=== PATIENT | male | born 1960 | race Caucasian/White ===

== ENCOUNTER 2022-02-07 14:37 | Inpatient (IN) | payer BC, OTHER ==
[~2022-02-07] VITALS: Ht 172.7 cm; Wt 78.2 kg
[2022-02-07] MEDS ORDERED: NITROGLYCERIN 0.4 MG SL TAB SL ONE (15:15)
[2022-02-07] MEDS ORDERED: HEPARIN DRIP/D5W 100UNITS/ML 250 ML IV SCH (15:15)
[2022-02-07 15:19] LABS: Basophils # (auto) 0.1 10 ^3/uL (0-0.2); Basophils % (auto) 0.6 % (0.0-2.0); Eosinophils # (auto) 0 10 ^3/uL (0-0.8); Monocytes # (auto) 0.5 10 ^3/uL (0-1.3); Neutrophils # (auto) 12.7 10 ^3/uL (1.6-8.6); Neutrophils % (auto) 90.3 % (37.0-80.0); Red Cell Distribution Width 13.9 % (11.8-14.3)
[2022-02-07 15:21] LABS: Eosinophils % (auto) 0.1 % (0.0-7.0); Hematocrit 47.2 % (41.0-53.0); Hemoglobin 15.6 g/dL (13.5-17.5); Lymphocytes # (auto) 0.7 10 ^3/uL (0.4-5.4); Lymphocytes % (auto) 5.1 % (10.0-50.0); Mean Corpuscular Hemoglobin 26.5 pg (28.0-32.0); Mean Corpuscular Volume 80.3 fL (80.0-100.0); Monocytes % (auto) 3.9 % (0.0-12.0); Nucleated Red Blood Cells % 0.1 %; Red Blood Cells 5.88 10^6/uL (4.5-5.90)
[2022-02-07] MEDS ORDERED: METOPROLOL TARTRATE 1MG/1ML-5ML VIAL IV ONE (15:30)
[2022-02-07] MEDS ORDERED: FAT EMULSION IV SCH (15:30)
[2022-02-07] MEDS ORDERED: CLOPIDOGREL BISULFATE 75 MG TAB PO ONE ×3 (15:30)
[2022-02-07] MEDS ORDERED: GIVE UN DILUTED IV SCH (15:30)
[2022-02-07 15:37] LABS: Albumin 3.5 g/dL (3.4-5.0); Calcium 8.8 mg/dL (8.5-10.1); Potassium 4.3 mmol/L (3.5-5.1)
[2022-02-07 15:41] LABS: INR 1.03 (0.9-1.15); Partial Thromboplastin Time 27.2 sec (24.6-33.4)
[2022-02-07 15:42] LABS: Bilirubin, Total 0.7 mg/dL (0.2-1.0); Total Protein 6.7 g/dL (6.4-8.2)
[2022-02-07] MEDS ORDERED: CLOPIDOGREL 300 MG TAB PO ONE (15:45)
[2022-02-07] MEDS ORDERED: HEPARIN SODIUM (PORCINE) 5000 UNITS/ML 1ML VIAL IV ONE (15:45)
[2022-02-07] MEDS ORDERED: NITROGLYCERIN 2% OINT 1GM PKG TD ONE (16:15)
[2022-02-07] MEDS ORDERED: ONDANSETRON HCL 4 MG/2 ML VIAL IV ONE (18:00)
[2022-02-07] MEDS ORDERED: MORPHINE SULFATE 4 MG/ML SYR/VIAL IV PRN (20:00)
[2022-02-07] MEDS ORDERED: ONDANSETRON HCL 4 MG/2 ML VIAL IV PRN (20:00)
[2022-02-07] MEDS ORDERED: DEXTROSE (50%) 50ML SYRG IV PRN (20:00)
[2022-02-07] MEDS ORDERED: FUROSEMIDE 20 MG/2 ML VIAL IV ONE (20:00)
[2022-02-07] MEDS ORDERED: NITROGLYCERIN 0.4 MG SL TAB SL PRN (20:00)
[2022-02-07] MEDS ORDERED: MORPHINE SULFATE INJ 2 MG/ml SYRG IV PRN (20:00)
[2022-02-07 21:07] LABS: INR 1.03 (0.9-1.15); Partial Thromboplastin Time 43.3 sec (24.6-33.4)
[2022-02-07] MEDS: ATORVASTATIN 20 MG TAB PO SCH (22:10)
[2022-02-07] MEDS: HEPARIN DRIP/D5W 100UNITS/ML 250 ML IV SCH (23:29)
[2022-02-08] VITALS (32 sets, daily range): BP systolic 108–144; BP diastolic 57–94
[2022-02-08] MEDS: HEPARIN DRIP/D5W 100UNITS/ML 250 ML IV SCH ×3 (00:15→16:25)
[2022-02-08] MEDS: InsuLIN REG 1unit/0.01ml Soln (100units/ml) SC SCH ×4 (00:52→18:00)
[2022-02-08] MEDS: ACCU-CHEK COMFORT CURVE STRIP VI SCH ×4 (00:52→18:19)
[2022-02-08] MEDS: NITROGLYCERIN 0.4 MG SL TAB SL PRN ×3 (02:24→08:04)
[2022-02-08 03:09] LABS: Basophils # (auto) 0 10 ^3/uL (0-0.2); Eosinophils # (auto) 0 10 ^3/uL (0-0.8); Hemoglobin 15.2 g/dL (13.5-17.5); Monocytes # (auto) 0.9 10 ^3/uL (0-1.3); Red Cell Distribution Width 14.2 % (11.8-14.3)
[2022-02-08 03:10] LABS: Basophils % (auto) 0.3 % (0.0-2.0); Hematocrit 47.3 % (41.0-53.0); Lymphocytes # (auto) 1.2 10 ^3/uL (0.4-5.4); Lymphocytes % (auto) 7.4 % (10.0-50.0); Mean Corpuscular Hemoglobin 26.3 pg (28.0-32.0); Mean Corpuscular Hgb Conc. 32.2 g/dL (32.0-36.0); Mean Corpuscular Volume 81.6 fL (80.0-100.0); Monocytes % (auto) 5.8 % (0.0-12.0); Neutrophils # (auto) 13.5 10 ^3/uL (1.6-8.6); Neutrophils % (auto) 86.5 % (37.0-80.0); White Blood Cell 15.6 10^3/uL (4.4-10.8)
[2022-02-08 03:34] LABS: Albumin 3.4 g/dL (3.4-5.0); BUN/Creatinine Ratio 16.2; Calcium 8.9 mg/dL (8.5-10.1); Potassium 4.3 mmol/L (3.5-5.1)
[2022-02-08 03:36] LABS: Bilirubin, Total 0.7 mg/dL (0.2-1.0); Total Protein 7.1 g/dL (6.4-8.2)
[2022-02-08 05:08] LABS: INR 1.06 (0.9-1.15); Partial Thromboplastin Time 40.8 sec (24.6-33.4)
[2022-02-08 06:53] LABS: INR 1.03 (0.9-1.15); Partial Thromboplastin Time 43.4 sec (24.6-33.4)
[2022-02-08] MEDS: CLOPIDOGREL BISULFATE 75 MG TAB PO SCH (10:00)
[2022-02-08] MEDS: AZITHROMYCIN 500MG/ 250ML 250 ML IV SCH (10:00)
[2022-02-08] MEDS: DOCUSATE SOD 100 MG CAP PO SCH (10:00)
[2022-02-08] MEDS: ASPirin 81 mg TAB PO SCH (10:00)
[2022-02-08] MEDS: cefTRIAXone 1GM/50ML D5W 50 ML IV SCH ×2 (10:14→11:14)
[2022-02-08] MEDS: FUROSEMIDE 20 MG/2 ML VIAL IV SCH (10:15)
[2022-02-08] MEDS ORDERED: ANGIOMAX 250 MG VIAL IV ONE (10:55)
[2022-02-08] MEDS ORDERED: IOHEXOL 350 MG/ML 100ML IJ ONE (10:55)
[2022-02-08] MEDS ORDERED: fentaNYL CITRATE 100 MCG/2 ML VL ONE (10:55)
[2022-02-08] MEDS ORDERED: SODIUM CHL 0.9% 0 ML ONE (10:55)
[2022-02-08] MEDS ORDERED: MIDAZOLAM HCL 2MG/2ML 2ml VIAL (1mg/ml) ONE (10:55)
[2022-02-08] MEDS ORDERED: LIDOCAINE 2%HCL (LOCAL ANESTH.) INJ 20ML MDV ONE (10:57)
[2022-02-08] MEDS ORDERED: HEPARIN SODIUM (PORCINE) 5000 UNITS/ML 1ML VIAL ONE (11:26)
[2022-02-08] MEDS ORDERED: VERAPAMIL 2.5MG/ML INJ 2ML VIAL IV ONE (11:26)
[2022-02-08] MEDS ORDERED: NITROGLYCERIN 0.4 MG SL TAB SL PRN (13:00)
[2022-02-08] MEDS ORDERED: MORPHINE SULFATE INJ 2 MG/ml SYRG IV PRN (13:00)
[2022-02-08 17:36] LABS: INR 1.06 (0.9-1.15); Partial Thromboplastin Time 38.5 sec (24.6-33.4)
[2022-02-08] MEDS: ATORVASTATIN 20 MG TAB PO SCH (21:21)
[2022-02-08] MEDS: METOPROLOL TARTRATE 25 MG TAB PO SCH (21:22)
[2022-02-09] VITALS (96 sets, daily range): BP systolic 95–138; BP diastolic 49–83
[2022-02-09] MEDS: ACCU-CHEK COMFORT CURVE STRIP VI SCH ×5 (00:54→23:26)
[2022-02-09] MEDS: InsuLIN REG 1unit/0.01ml Soln (100units/ml) SC SCH ×5 (00:54→23:26)
[2022-02-09 01:31] LABS: INR 1.09 (0.9-1.15); Partial Thromboplastin Time 57.3 sec (24.6-33.4)
[2022-02-09] MEDS: HEPARIN DRIP/D5W 100UNITS/ML 250 ML IV SCH ×2 (07:25→23:48)
[2022-02-09 08:02] LABS: Basophils # (auto) 0.1 10 ^3/uL (0-0.2); Eosinophils # (auto) 0 10 ^3/uL (0-0.8); Monocytes # (auto) 1.1 10 ^3/uL (0-1.3); White Blood Cell 11.9 10^3/uL (4.4-10.8)
[2022-02-09 08:04] LABS: Basophils % (auto) 0.8 % (0.0-2.0); Eosinophils % (auto) 0.1 % (0.0-7.0); Hematocrit 43.1 % (41.0-53.0); Lymphocytes # (auto) 1.6 10 ^3/uL (0.4-5.4); Lymphocytes % (auto) 13.1 % (10.0-50.0); Mean Corpuscular Hemoglobin 26.1 pg (28.0-32.0); Mean Corpuscular Hgb Conc. 32.4 g/dL (32.0-36.0); Mean Corpuscular Volume 80.5 fL (80.0-100.0); Neutrophils # (auto) 9.1 10 ^3/uL (1.6-8.6); Red Blood Cells 5.35 10^6/uL (4.5-5.90); Red Cell Distribution Width 14.2 % (11.8-14.3)
[2022-02-09 08:09] LABS: INR 1.11 (0.9-1.15); Partial Thromboplastin Time 61.6 sec (24.6-33.4)
[2022-02-09 08:15] LABS: Potassium 3.8 mmol/L (3.5-5.1)
[2022-02-09 08:19] LABS: BUN/Creatinine Ratio 26.3; Calcium 8.8 mg/dL (8.5-10.1)
[2022-02-09] MEDS: cefTRIAXone 1GM/50ML D5W 50 ML IV SCH (08:21)
[2022-02-09] MEDS: ACETAMINOPHEN 325 MG TAB PO PRN ×3 (08:21→17:34)
[2022-02-09] MEDS: FUROSEMIDE 20 MG/2 ML VIAL IV SCH (10:17)
[2022-02-09] MEDS: AZITHROMYCIN 500MG/ 250ML 250 ML IV SCH (10:18)
[2022-02-09] MEDS: CLOPIDOGREL BISULFATE 75 MG TAB PO SCH (10:18)
[2022-02-09] MEDS: ASPirin 81 mg TAB PO SCH (10:19)
[2022-02-09] MEDS: DOCUSATE SOD 100 MG CAP PO SCH (10:19)
[2022-02-09] MEDS: METOPROLOL TARTRATE 25 MG TAB PO SCH ×2 (10:21→22:15)
[2022-02-09] MEDS ORDERED: ACETAMINOPHEN 325 MG TAB PO ONE (13:00)
[2022-02-09 13:53] LABS: INR 1.1 (0.9-1.15); Partial Thromboplastin Time 64.1 sec (24.6-33.4)
[2022-02-09] MEDS: FUROSEMIDE 40 MG/4 ML VIAL IV SCH (17:27)
[2022-02-09] MEDS: ATORVASTATIN 20 MG TAB PO SCH (22:15)
[2022-02-10] VITALS (96 sets, daily range): BP systolic 89–188; BP diastolic 50–101
[2022-02-10] MEDS: ACETAMINOPHEN 325 MG TAB PO PRN (00:36)
[2022-02-10 03:45] LABS: Basophils # (auto) 0 10 ^3/uL (0-0.2); Basophils % (auto) 0.3 % (0.0-2.0); Eosinophils # (auto) 0 10 ^3/uL (0-0.8); Eosinophils % (auto) 0.4 % (0.0-7.0); Hematocrit 42.6 % (41.0-53.0); Hemoglobin 13.8 g/dL (13.5-17.5); Lymphocytes # (auto) 1.5 10 ^3/uL (0.4-5.4); Lymphocytes % (auto) 14.7 % (10.0-50.0); Mean Corpuscular Hemoglobin 26.1 pg (28.0-32.0); Mean Corpuscular Hgb Conc. 32.5 g/dL (32.0-36.0); Mean Corpuscular Volume 80.2 fL (80.0-100.0); Monocytes % (auto) 9.4 % (0.0-12.0); Neutrophils # (auto) 7.6 10 ^3/uL (1.6-8.6); Neutrophils % (auto) 75.2 % (37.0-80.0); Red Blood Cells 5.31 10^6/uL (4.5-5.90); Red Cell Distribution Width 14.1 % (11.8-14.3); White Blood Cell 10.2 10^3/uL (4.4-10.8)
[2022-02-10 04:06] LABS: Calcium 8.5 mg/dL (8.5-10.1); Potassium 3.6 mmol/L (3.5-5.1)
[2022-02-10 04:07] LABS: INR 1.1 (0.9-1.15); Partial Thromboplastin Time 57.6 sec (24.6-33.4)
[2022-02-10 04:13] LABS: BUN/Creatinine Ratio 27.8
[2022-02-10] MEDS: InsuLIN REG 1unit/0.01ml Soln (100units/ml) SC SCH ×2 (05:54→12:00)
[2022-02-10] MEDS: FUROSEMIDE 40 MG/4 ML VIAL IV SCH ×2 (05:54→18:33)
[2022-02-10] MEDS: ACCU-CHEK COMFORT CURVE STRIP VI SCH ×2 (05:54→11:54)
[2022-02-10] MEDS: ASPirin 81 mg TAB PO SCH (09:21)
[2022-02-10] MEDS: cefTRIAXone 1GM/50ML D5W 50 ML IV SCH (09:22)
[2022-02-10] MEDS: DOCUSATE SOD 100 MG CAP PO SCH (09:22)
[2022-02-10] MEDS: METOPROLOL TARTRATE 25 MG TAB PO SCH ×2 (09:22→22:18)
[2022-02-10] MEDS: AZITHROMYCIN 500MG/ 250ML 250 ML IV SCH (10:17)
[2022-02-10] MEDS ORDERED: POTASSIUM CHL 20 Meq TABLET PO ONE (15:30)
[2022-02-10] MEDS: HEPARIN DRIP/D5W 100UNITS/ML 250 ML IV SCH (16:37)
[2022-02-10] MEDS: ATORVASTATIN 20 MG TAB PO SCH (22:18)
[2022-02-11] VITALS (96 sets, daily range): BP systolic 101–152; BP diastolic 53–84
[2022-02-11 03:56] LABS: Basophils # (auto) 0.1 10 ^3/uL (0-0.2); Basophils % (auto) 0.7 % (0.0-2.0); Eosinophils # (auto) 0.1 10 ^3/uL (0-0.8); Hematocrit 41.5 % (41.0-53.0); Hemoglobin 13.8 g/dL (13.5-17.5); Lymphocytes # (auto) 1.5 10 ^3/uL (0.4-5.4)
[2022-02-11 03:58] LABS: Eosinophils % (auto) 1.1 % (0.0-7.0); Lymphocytes % (auto) 16.4 % (10.0-50.0); Mean Corpuscular Hemoglobin 26.7 pg (28.0-32.0); Mean Corpuscular Hgb Conc. 33.2 g/dL (32.0-36.0); Mean Corpuscular Volume 80.4 fL (80.0-100.0); Monocytes # (auto) 0.8 10 ^3/uL (0-1.3); Monocytes % (auto) 9.5 % (0.0-12.0); Neutrophils # (auto) 6.4 10 ^3/uL (1.6-8.6); Neutrophils % (auto) 72.3 % (37.0-80.0); Nucleated Red Blood Cells % 0.1 %; Red Blood Cells 5.16 10^6/uL (4.5-5.90); Red Cell Distribution Width 13.9 % (11.8-14.3); White Blood Cell 8.9 10^3/uL (4.4-10.8)
[2022-02-11 04:03] LABS: INR 1.08 (0.9-1.15); Partial Thromboplastin Time 53.1 sec (24.6-33.4)
[2022-02-11 04:05] LABS: Calcium 8.7 mg/dL (8.5-10.1); Magnesium 2.2 mg/dL (1.6-2.6); Potassium 3.9 mmol/L (3.5-5.1)
[2022-02-11 04:12] LABS: BUN/Creatinine Ratio 25.3
[2022-02-11] MEDS: HEPARIN DRIP/D5W 100UNITS/ML 250 ML IV SCH ×2 (05:28→21:50)
[2022-02-11] MEDS: FUROSEMIDE 40 MG/4 ML VIAL IV SCH ×2 (05:35→17:57)
[2022-02-11] MEDS: cefTRIAXone 1GM/50ML D5W 50 ML IV SCH (09:39)
[2022-02-11] MEDS: ASPirin 81 mg TAB PO SCH (10:36)
[2022-02-11] MEDS: DOCUSATE SOD 100 MG CAP PO SCH (10:36)
[2022-02-11] MEDS: AZITHROMYCIN 500MG/ 250ML 250 ML IV SCH (10:36)
[2022-02-11] MEDS: METOPROLOL TARTRATE 25 MG TAB PO SCH ×2 (10:37→21:49)
[2022-02-11] MEDS: ATORVASTATIN 20 MG TAB PO SCH (21:48)
[2022-02-12] VITALS (45 sets, daily range): BP systolic 114–154; BP diastolic 54–94
[2022-02-12 03:42] LABS: Basophils # (auto) 0.1 10 ^3/uL (0-0.2); Mean Corpuscular Volume 79.5 fL (80.0-100.0); Monocytes # (auto) 0.8 10 ^3/uL (0-1.3)
[2022-02-12 03:43] LABS: Basophils % (auto) 1.1 % (0.0-2.0); Eosinophils # (auto) 0.1 10 ^3/uL (0-0.8); Eosinophils % (auto) 1.7 % (0.0-7.0); Hemoglobin 13.9 g/dL (13.5-17.5); Lymphocytes # (auto) 1.5 10 ^3/uL (0.4-5.4); Lymphocytes % (auto) 17.5 % (10.0-50.0); Mean Corpuscular Hemoglobin 26.2 pg (28.0-32.0); Monocytes % (auto) 9.7 % (0.0-12.0); Red Blood Cells 5.29 10^6/uL (4.5-5.90); Red Cell Distribution Width 13.6 % (11.8-14.3); White Blood Cell 8.5 10^3/uL (4.4-10.8)
[2022-02-12 03:56] LABS: Albumin 2.7 g/dL (3.4-5.0); BUN/Creatinine Ratio 23.5; Calcium 8.7 mg/dL (8.5-10.1); Potassium 3.7 mmol/L (3.5-5.1)
[2022-02-12 03:57] LABS: INR 1.04 (0.9-1.15); Partial Thromboplastin Time 53.5 sec (24.6-33.4)
[2022-02-12 03:59] LABS: Bilirubin, Total 0.5 mg/dL (0.2-1.0)
[2022-02-12] MEDS: FUROSEMIDE 40 MG/4 ML VIAL IV SCH (05:59)
[2022-02-12] MEDS: cefTRIAXone 1GM/50ML D5W 50 ML IV SCH (09:03)
[2022-02-12] MEDS: METOPROLOL TARTRATE 25 MG TAB PO SCH (10:00)
[2022-02-12] MEDS: ASPirin 81 mg TAB PO SCH (10:00)
[2022-02-12] MEDS: DOCUSATE SOD 100 MG CAP PO SCH (10:00)
[2022-02-12] MEDS: AZITHROMYCIN 500MG/ 250ML 250 ML IV SCH (10:00)
== END 2022-02-12 11:30 | disposition short-term general hospital (02) | DRG 270 ==
LOC: EDBD 14:37 → ER 14:40 → TELE 20:20 → ICU WEST 02-08 15:49
PROVIDERS: ADMIT Nurse Practitioner Family; ATTEND Internal Medicine
PROC: B2151ZZ Fluoroscopy of Left Heart using Low Osmolar Contrast (ICD-10-PCS; principal; 2022-02-08)
PROC: 5A02210 Assistance with Cardiac Output using Balloon Pump, Continuous (ICD-10-PCS; 2022-02-08)
PROC: B2111ZZ Fluoroscopy of Multiple Coronary Arteries using Low Osmolar Contrast (ICD-10-PCS; 2022-02-08)
PROC: 4A023N7 Measurement of Cardiac Sampling and Pressure, Left Heart, Percutaneous Approach (ICD-10-PCS; 2022-02-08)
DX: I21.4 Non-ST elevation (NSTEMI) myocardial infarction (principal); I50.21 Acute systolic (congestive) heart failure; J15.9 Unspecified bacterial pneumonia; I25.110 Atherosclerotic heart disease of native coronary artery with unstable angina pectoris; I27.20 Pulmonary hypertension, unspecified; I11.0 Hypertensive heart disease with heart failure; I45.10 Unspecified right bundle-branch block; E11.65 Type 2 diabetes mellitus with hyperglycemia; Z20.822 Contact with and (suspected) exposure to COVID-19; E78.5 Hyperlipidemia, unspecified; F41.9 Anxiety disorder, unspecified; Z85.828 Personal history of other malignant neoplasm of skin
CPT/HCPCS: 33967; 36415; 71045; 80048; 80053; 80061; 82962; 83036; 83735; 83880; 84132; 84443; 84484; 85025; 85610; 85730; 87081; 87426; 87804; 93005; 93306; 93458; 96365; 96375; 96376; 99152; 99153; G0378; J0696; J1815; J2250; J2405

== ENCOUNTER 2022-04-22 11:28 | Inpatient (IN) | payer OTHER ==
[~2022-04-22] VITALS: Ht 172.7 cm; Wt 79.2 kg
[2022-04-22 12:02] LABS: Basophils # (auto) 0.1 10 ^3/uL (0-0.2); Eosinophils # (auto) 0 10 ^3/uL (0-0.8); Eosinophils % (auto) 0.2 % (0.0-7.0); Lymphocytes # (auto) 1.3 10 ^3/uL (0.4-5.4)
[2022-04-22 12:03] LABS: Basophils % (auto) 0.7 % (0.0-2.0); Hematocrit 46.3 % (41.0-53.0); Hemoglobin 14.3 g/dL (13.5-17.5); Lymphocytes % (auto) 10.8 % (10.0-50.0); Mean Corpuscular Hgb Conc. 30.9 g/dL (32.0-36.0); Mean Corpuscular Volume 74.4 fL (80.0-100.0); Monocytes % (auto) 8.6 % (0.0-12.0); Neutrophils # (auto) 9.5 10 ^3/uL (1.6-8.6); Neutrophils % (auto) 79.7 % (37.0-80.0); Red Blood Cells 6.22 10^6/uL (4.5-5.90); Red Cell Distribution Width 18.7 % (11.8-14.3)
[2022-04-22 12:07] LABS: Magnesium 2.6 mg/dL (1.6-2.6); Potassium 3.8 mmol/L (3.5-5.1)
[2022-04-22 12:12] LABS: Bilirubin, Total 0.9 mg/dL (0.2-1.0)
[2022-04-22] MEDS ORDERED: CEFEPIME 1GM/ 50ML 50 ML IV ONE (14:00)
[2022-04-22] MEDS ORDERED: VANCOMYCIN 1GM/250ML 250 ML IV ONE (14:00)
[2022-04-22] MEDS ORDERED: FUROSEMIDE 40 MG/4 ML VIAL IV ONE (14:30)
[2022-04-22] MEDS ORDERED: MORPHINE SULFATE INJ 2 MG/ml SYRG IV PRN (18:15)
[2022-04-22] MEDS ORDERED: NITROGLYCERIN 0.4 MG SL TAB SL PRN (18:15)
[2022-04-22] MEDS ORDERED: ASPI-325 PO (18:21)
[2022-04-22] MEDS ORDERED: LISI-716 PO (18:21)
[2022-04-22] MEDS ORDERED: ROSU1TAB15 PO (18:21)
[2022-04-22] MEDS ORDERED: MET25T PO (18:21)
[2022-04-22] MEDS ORDERED: IPRATROPIUM BROM 0.5 MG/2.5ML INH SOL NEB PRN (18:30)
[2022-04-22] MEDS ORDERED: ALBUTEROL SULF 2.5 MG/0.5ML(0.5%) NEB SOLN NEB PRN (18:30)
[2022-04-22] MEDS ORDERED: POTASSIUM CHL 20 Meq TABLET PO ONE (18:45)
[2022-04-22] MEDS ORDERED: FUROSEMIDE 20 MG/2 ML VIAL IV ONE (18:45)
[2022-04-22 18:57] LABS: Cholesterol 113 mg/dL (< 200); Triglycerides 90 mg/dL (< 150)
[2022-04-22 19:00] LABS: HDL Cholesterol 27 mg/dL (40-59); LDL Cholesterol 78 mg/dL (< 100)
[2022-04-22 19:08] LABS: INR 1.29 (0.9-1.15); Partial Thromboplastin Time 22.9 sec (24.6-33.4)
[2022-04-22 23:00] VITALS: BP 136/99
[2022-04-22] MEDS: METOPROLOL TARTRATE 25 MG TAB PO SCH (23:29)
[2022-04-23 00:02] LABS: Urine Bacteria NONE SEEN /hpf (None Seen); Urine Blood Negative /uL (Negative); Urine Mucus MODERATE (None Seen); Urine WBC 2 /hpf (0 - 3)
[2022-04-23 00:10] LABS: Urine Specific Gravity < 1.050 (1.001-1.035)
[2022-04-23 00:20] LABS: Alcohol, Urine < 3.0 mg/dL (0-10); Amphetamine Screen, Urine NEGATIVE (NEGATIVE); Barbiturate Scree,Urine NEGATIVE (NEGATIVE); Benzodiazephine Screen, Urine NEGATIVE (NEGATIVE); Cannabinoid Screen, Urine NEGATIVE (NEGATIVE); Cocaine Screen, Urine NEGATIVE (NEGATIVE); Opiate Scree,Urine NEGATIVE (NEGATIVE); Phencyclidine Screen, Urine NEGATIVE (NEGATIVE)
[2022-04-23] MEDS ORDERED: ALBUTEROL MEDNEB 2.5 mg/3ml NEB ONE ×3 (05:41→18:12)
[2022-04-23 06:20] LABS: Basophils # (auto) 0.1 10 ^3/uL (0-0.2); Eosinophils # (auto) 0 10 ^3/uL (0-0.8); Eosinophils % (auto) 0.4 % (0.0-7.0); Hematocrit 42.3 % (41.0-53.0); Hemoglobin 13.9 g/dL (13.5-17.5); Lymphocytes # (auto) 0.9 10 ^3/uL (0.4-5.4); Lymphocytes % (auto) 8.3 % (10.0-50.0); Mean Corpuscular Hemoglobin 24.3 pg (28.0-32.0); Mean Corpuscular Hgb Conc. 32.9 g/dL (32.0-36.0); Mean Corpuscular Volume 73.8 fL (80.0-100.0); Monocytes # (auto) 0.9 10 ^3/uL (0-1.3); Monocytes % (auto) 8.5 % (0.0-12.0); Neutrophils % (auto) 81.8 % (37.0-80.0); Nucleated Red Blood Cells % 0.1 %; Red Blood Cells 5.73 10^6/uL (4.5-5.90); Red Cell Distribution Width 19.2 % (11.8-14.3)
[2022-04-23 06:36] LABS: Potassium 4.1 mmol/L (3.5-5.1)
[2022-04-23 06:46] LABS: Albumin 2.9 g/dL (3.4-5.0); BUN/Creatinine Ratio 21.7; Bilirubin, Total 0.9 mg/dL (0.2-1.0); Total Protein 6.6 g/dL (6.4-8.2)
[2022-04-23] MEDS: ALBUTEROL SULF 2.5 MG/0.5ML(0.5%) NEB SOLN NEB SCH ×3 (07:08→20:40)
[2022-04-23] MEDS: IPRATROPIUM BROM 0.5 MG/2.5ML INH SOL NEB SCH ×3 (07:08→20:40)
[2022-04-23] MEDS: cefTRIAXone 1GM/50ML D5W 50 ML IV SCH (09:14)
[2022-04-23 09:50] LABS: Hepatitis B Surface Antibody Negative (Negative)
[2022-04-23] MEDS ORDERED: FUROSEMIDE 20 MG/2 ML VIAL IV SCH (10:00)
[2022-04-23] MEDS ORDERED: ENOXAPARIN SOD 40 MG/0.4 ML SYRINGE SC SCH (10:00)
[2022-04-23] MEDS: PANTOPRAZOLE 40 MG/10 ML VIAL INJ IV SCH (10:11)
[2022-04-23] MEDS: POTASSIUM CHL 10 Meq TABLET PO SCH (10:11)
[2022-04-23] MEDS: ASPirin-EC 81 mg tab PO SCH (10:11)
[2022-04-23] MEDS: LISINOPRIL 10 MG TAB PO SCH (10:11)
[2022-04-23] MEDS: ATORVASTATIN 20 MG TAB PO SCH (10:12)
[2022-04-23] MEDS: METOPROLOL TARTRATE 25 MG TAB PO SCH ×2 (10:12→21:28)
[2022-04-23] MEDS: AZITHROMYCIN 500MG/ 250ML 250 ML IV SCH (10:56)
[2022-04-23 11:01] LABS: Hepatitis A Total Antibody Negative (Negative)
[2022-04-23 11:11] LABS: Hepatitis C Antibody Negative (Negative)
[2022-04-23 17:50] VITALS: BP 102/79
[2022-04-23 18:00] VITALS: BP 102/79
[2022-04-23 22:00] VITALS: BP 100/71
[2022-04-24 05:00] VITALS: BP 106/78
[2022-04-24 05:50] LABS: Basophils # (auto) 0.1 10 ^3/uL (0-0.2); Basophils % (auto) 0.7 % (0.0-2.0); Eosinophils # (auto) 0.3 10 ^3/uL (0-0.8); Eosinophils % (auto) 2.8 % (0.0-7.0); Hematocrit 40.3 % (41.0-53.0); Hemoglobin 13.5 g/dL (13.5-17.5); Lymphocytes # (auto) 1.5 10 ^3/uL (0.4-5.4); Lymphocytes % (auto) 16.4 % (10.0-50.0); Mean Corpuscular Hemoglobin 30.1 pg (28.0-32.0); Mean Corpuscular Hgb Conc. 33.6 g/dL (32.0-36.0); Mean Corpuscular Volume 89.7 fL (80.0-100.0); Monocytes # (auto) 0.8 10 ^3/uL (0-1.3); Monocytes % (auto) 8.3 % (0.0-12.0); Neutrophils # (auto) 6.6 10 ^3/uL (1.6-8.6); Neutrophils % (auto) 71.8 % (37.0-80.0); Red Blood Cells 4.49 10^6/uL (4.5-5.90); White Blood Cell 9.2 10^3/uL (4.4-10.8)
[2022-04-24 05:51] LABS: Albumin 2.5 g/dL (3.4-5.0); Calcium 8.1 mg/dL (8.5-10.1); Potassium 3.9 mmol/L (3.5-5.1)
[2022-04-24 05:53] LABS: BUN/Creatinine Ratio 18.8
[2022-04-24 06:06] LABS: Bilirubin, Total 0.4 mg/dL (0.2-1.0); Total Protein 6.4 g/dL (6.4-8.2)
[2022-04-24] MEDS: cefTRIAXone 1GM/50ML D5W 50 ML IV SCH (08:20)
[2022-04-24 08:32] VITALS: BP 100/75
[2022-04-24] MEDS: AZITHROMYCIN 500MG/ 250ML 250 ML IV SCH (09:53)
[2022-04-24] MEDS: POTASSIUM CHL 10 Meq TABLET PO SCH (09:53)
[2022-04-24] MEDS: PANTOPRAZOLE 40 MG/10 ML VIAL INJ IV SCH (09:53)
[2022-04-24] MEDS: ASPirin-EC 81 mg tab PO SCH (09:53)
[2022-04-24] MEDS: ATORVASTATIN 20 MG TAB PO SCH (09:54)
[2022-04-24] MEDS: CARVEDILOL 3.125 MG TAB PO SCH ×2 (09:55→21:35)
[2022-04-24] MEDS: LISINOPRIL 10 MG TAB PO SCH (09:55)
[2022-04-24] MEDS ORDERED: FUROSEMIDE 40 MG/4 ML VIAL IV SCH (10:00)
[2022-04-24] MEDS ORDERED: metOLazone 5 MG TAB PO ONE (12:15)
[2022-04-24 12:17] VITALS: BP 96/72
[2022-04-24 17:00] VITALS: BP 107/70
[2022-04-24] MEDS: APIXABAN 5 MG TAB PO SCH (21:35)
[2022-04-24 22:00] VITALS: BP 104/75
[2022-04-24] MEDS: FUROSEMIDE 40 MG/4 ML VIAL IV SCH (22:00)
[2022-04-25] VITALS (9 sets, daily range): BP systolic 80–111; BP diastolic 55–77
[2022-04-25] MEDS: cefTRIAXone 1GM/50ML D5W 50 ML IV SCH (09:35)
[2022-04-25] MEDS: CARVEDILOL 3.125 MG TAB PO SCH ×2 (09:36→22:17)
[2022-04-25] MEDS: PANTOPRAZOLE 40 MG/10 ML VIAL INJ IV SCH (09:36)
[2022-04-25] MEDS: FUROSEMIDE 40 MG/4 ML VIAL IV SCH ×2 (09:36→17:18)
[2022-04-25] MEDS: ASPirin-EC 81 mg tab PO SCH (09:37)
[2022-04-25] MEDS: APIXABAN 5 MG TAB PO SCH ×2 (09:37→22:16)
[2022-04-25] MEDS: POTASSIUM CHL 10 Meq TABLET PO SCH (09:37)
[2022-04-25] MEDS: LISINOPRIL 10 MG TAB PO SCH (09:38)
[2022-04-25] MEDS: ATORVASTATIN 20 MG TAB PO SCH ×3 (09:43→22:18)
[2022-04-25] MEDS: AZITHROMYCIN 500MG/ 250ML 250 ML IV SCH (10:30)
[2022-04-25] MEDS ORDERED: MIDODRINE HCL 10 MG TAB ONE (12:55)
[2022-04-25] MEDS ORDERED: MIDODRINE HCL 10 MG TAB PO ONE (13:00)
[2022-04-25] MEDS ORDERED: SODIUM CHLORIDE 0.9% 250 ML IV ONE (13:00)
[2022-04-25] MEDS ORDERED: ONDANSETRON HCL 4 MG/2 ML VIAL ONE (13:10)
[2022-04-25] MEDS ORDERED: ONDANSETRON HCL 4 MG/2 ML VIAL IV PRN (13:15)
[2022-04-25] MEDS ORDERED: PROMETHAZINE HCL 25 MG/ML 1ML IV ONE (13:15)
[2022-04-25] MEDS ORDERED: PROMETHAZINE HCL 25 MG/ML 1ML ONE (13:16)
[2022-04-25] MEDS: MIDODRINE HCL 10 MG TAB PO SCH (17:18)
[2022-04-26] VITALS (28 sets, daily range): BP systolic 81–110; BP diastolic 56–81
[2022-04-26] MEDS: FUROSEMIDE 40 MG/4 ML VIAL IV SCH ×2 (07:49→17:22)
[2022-04-26] MEDS: MIDODRINE HCL 10 MG TAB PO SCH ×3 (07:50→17:22)
[2022-04-26] MEDS: cefTRIAXone 1GM/50ML D5W 50 ML IV SCH (08:45)
[2022-04-26] MEDS: AZITHROMYCIN 500MG/ 250ML 250 ML IV SCH (08:47)
[2022-04-26] MEDS: LISINOPRIL 10 MG TAB PO SCH (09:16)
[2022-04-26] MEDS: APIXABAN 5 MG TAB PO SCH ×2 (09:20→21:51)
[2022-04-26] MEDS: POTASSIUM CHL 10 Meq TABLET PO SCH (09:20)
[2022-04-26] MEDS: PANTOPRAZOLE 40 MG/10 ML VIAL INJ IV SCH (09:20)
[2022-04-26] MEDS: ASPirin-EC 81 mg tab PO SCH (09:20)
[2022-04-26] MEDS: CARVEDILOL 3.125 MG TAB PO SCH ×3 (09:21→22:25)
[2022-04-26] MEDS: ATORVASTATIN 20 MG TAB PO SCH (11:38)
[2022-04-26 17:55] LABS: Hemoglobin 13.3 g/dL (13.5-17.5); Monocytes # (auto) 0.9 10 ^3/uL (0-1.3); Monocytes % (auto) 9.4 % (0.0-12.0)
[2022-04-26 17:58] LABS: Basophils # (auto) 0.1 10 ^3/uL (0-0.2); Basophils % (auto) 1.1 % (0.0-2.0); Eosinophils # (auto) 0.1 10 ^3/uL (0-0.8); Eosinophils % (auto) 1.4 % (0.0-7.0); Lymphocytes # (auto) 1.6 10 ^3/uL (0.4-5.4); Lymphocytes % (auto) 16.6 % (10.0-50.0); Mean Corpuscular Hemoglobin 23.9 pg (28.0-32.0); Mean Corpuscular Hgb Conc. 32.4 g/dL (32.0-36.0); Mean Corpuscular Volume 73.7 fL (80.0-100.0); Neutrophils # (auto) 6.8 10 ^3/uL (1.6-8.6); Neutrophils % (auto) 71.5 % (37.0-80.0); Nucleated Red Blood Cells % 0.3 %; Red Blood Cells 5.56 10^6/uL (4.5-5.90); Red Cell Distribution Width 18.5 % (11.8-14.3); White Blood Cell 9.5 10^3/uL (4.4-10.8)
[2022-04-26 18:07] LABS: Albumin 2.5 g/dL (3.4-5.0); BUN/Creatinine Ratio 26.3; Calcium 8.5 mg/dL (8.5-10.1); Magnesium 2.4 mg/dL (1.6-2.6); Potassium 4.8 mmol/L (3.5-5.1)
[2022-04-26 18:10] LABS: Bilirubin, Total 0.4 mg/dL (0.2-1.0); Total Protein 5.8 g/dL (6.4-8.2)
[2022-04-26 18:29] LABS: INR 1.44 (0.9-1.15); Partial Thromboplastin Time 31.5 sec (24.6-33.4)
[2022-04-27] VITALS (40 sets, daily range): BP systolic 93–126; BP diastolic 61–93
[2022-04-27] MEDS: FUROSEMIDE 40 MG/4 ML VIAL IV SCH ×2 (06:00→18:23)
[2022-04-27 06:57] LABS: Basophils # (auto) 0.1 10 ^3/uL (0-0.2); Eosinophils # (auto) 0.1 10 ^3/uL (0-0.8); Lymphocytes # (auto) 1.5 10 ^3/uL (0.4-5.4); Monocytes # (auto) 0.7 10 ^3/uL (0-1.3); Neutrophils # (auto) 6.6 10 ^3/uL (1.6-8.6)
[2022-04-27 06:59] LABS: Basophils % (auto) 1.3 % (0.0-2.0); Hematocrit 38.8 % (41.0-53.0); Hemoglobin 12.8 g/dL (13.5-17.5); Lymphocytes % (auto) 16.4 % (10.0-50.0); Mean Corpuscular Hgb Conc. 32.9 g/dL (32.0-36.0); Monocytes % (auto) 7.8 % (0.0-12.0); Neutrophils % (auto) 73.5 % (37.0-80.0); Nucleated Red Blood Cells % 0.1 %; Red Blood Cells 5.32 10^6/uL (4.5-5.90); Red Cell Distribution Width 18.6 % (11.8-14.3)
[2022-04-27 07:05] LABS: Albumin 2.5 g/dL (3.4-5.0); Calcium 8.6 mg/dL (8.5-10.1); Potassium 4.4 mmol/L (3.5-5.1)
[2022-04-27 07:08] LABS: BUN/Creatinine Ratio 27.8; Bilirubin, Total 0.4 mg/dL (0.2-1.0); Total Protein 5.7 g/dL (6.4-8.2)
[2022-04-27] MEDS: DOBUTamine 1000MCG/ML 250 ML IV SCH (08:46)
[2022-04-27] MEDS: MIDODRINE HCL 10 MG TAB PO SCH ×3 (09:09→18:23)
[2022-04-27] MEDS: CARVEDILOL 3.125 MG TAB PO SCH (10:00)
[2022-04-27] MEDS: cefTRIAXone 1GM/50ML D5W 50 ML IV SCH (10:51)
[2022-04-27] MEDS: AZITHROMYCIN 500MG/ 250ML 250 ML IV SCH (10:53)
[2022-04-27] MEDS: APIXABAN 5 MG TAB PO SCH ×2 (10:53→21:30)
[2022-04-27] MEDS: POTASSIUM CHL 10 Meq TABLET PO SCH (10:53)
[2022-04-27] MEDS: PANTOPRAZOLE 40 MG/10 ML VIAL INJ IV SCH (10:53)
[2022-04-27] MEDS: ASPirin-EC 81 mg tab PO SCH (10:53)
[2022-04-28] VITALS (35 sets, daily range): BP systolic 99–142; BP diastolic 59–95
[2022-04-28] MEDS: DOBUTamine 1000MCG/ML 250 ML IV SCH (05:34)
[2022-04-28 05:38] LABS: Basophils # (auto) 0.1 10 ^3/uL (0-0.2); Eosinophils # (auto) 0.1 10 ^3/uL (0-0.8); Hemoglobin 11.9 g/dL (13.5-17.5); Lymphocytes # (auto) 1.1 10 ^3/uL (0.4-5.4); Monocytes # (auto) 0.6 10 ^3/uL (0-1.3)
[2022-04-28 05:41] LABS: Basophils % (auto) 0.8 % (0.0-2.0); Eosinophils % (auto) 1.7 % (0.0-7.0); Hematocrit 37.4 % (41.0-53.0); Lymphocytes % (auto) 13.3 % (10.0-50.0); Mean Corpuscular Hemoglobin 23.2 pg (28.0-32.0); Mean Corpuscular Hgb Conc. 31.8 g/dL (32.0-36.0); Mean Corpuscular Volume 73.2 fL (80.0-100.0); Monocytes % (auto) 7.4 % (0.0-12.0); Neutrophils # (auto) 6.4 10 ^3/uL (1.6-8.6); Neutrophils % (auto) 76.8 % (37.0-80.0); Red Blood Cells 5.11 10^6/uL (4.5-5.90); Red Cell Distribution Width 18.1 % (11.8-14.3); White Blood Cell 8.4 10^3/uL (4.4-10.8)
[2022-04-28 05:57] LABS: Calcium 7.9 mg/dL (8.5-10.1); Potassium 3.7 mmol/L (3.5-5.1)
[2022-04-28 06:01] LABS: BUN/Creatinine Ratio 31.5
[2022-04-28] MEDS: FUROSEMIDE 40 MG/4 ML VIAL IV SCH ×2 (06:31→17:56)
[2022-04-28] MEDS: MIDODRINE HCL 10 MG TAB PO SCH ×3 (06:31→17:55)
[2022-04-28] MEDS: cefTRIAXone 1GM/50ML D5W 50 ML IV SCH (08:57)
[2022-04-28] MEDS: AZITHROMYCIN 250 MG TAB PO SCH (09:32)
[2022-04-28] MEDS: PANTOPRAZOLE 40 MG/10 ML VIAL INJ IV SCH (09:32)
[2022-04-28] MEDS: POTASSIUM CHL 10 Meq TABLET PO SCH (09:32)
[2022-04-28] MEDS: ASPirin-EC 81 mg tab PO SCH (09:32)
[2022-04-28] MEDS: APIXABAN 5 MG TAB PO SCH ×2 (09:32→21:23)
[2022-04-28 09:53] LABS: Albumin 2.4 g/dL (3.4-5.0); Bilirubin, Direct 0.2 mg/dL (0-0.2); Bilirubin, Total 0.5 mg/dL (0.2-1.0); Total Protein 4.8 g/dL (6.4-8.2)
[2022-04-29] VITALS (20 sets, daily range): BP systolic 106–142; BP diastolic 64–102
[2022-04-29] MEDS: DOBUTamine 1000MCG/ML 250 ML IV SCH (00:35)
[2022-04-29] MEDS: MIDODRINE HCL 10 MG TAB PO SCH ×3 (06:01→18:00)
[2022-04-29] MEDS: FUROSEMIDE 40 MG/4 ML VIAL IV SCH ×2 (06:01→18:00)
[2022-04-29 06:37] LABS: Basophils # (auto) 0.1 10 ^3/uL (0-0.2); Basophils % (auto) 0.8 % (0.0-2.0); Eosinophils # (auto) 0.2 10 ^3/uL (0-0.8); Eosinophils % (auto) 1.9 % (0.0-7.0); Hematocrit 37.7 % (41.0-53.0); Hemoglobin 12.1 g/dL (13.5-17.5); Lymphocytes # (auto) 0.9 10 ^3/uL (0.4-5.4); Lymphocytes % (auto) 11.3 % (10.0-50.0); Mean Corpuscular Hemoglobin 23.8 pg (28.0-32.0); Mean Corpuscular Hgb Conc. 32.2 g/dL (32.0-36.0); Mean Corpuscular Volume 73.8 fL (80.0-100.0); Monocytes # (auto) 0.7 10 ^3/uL (0-1.3); Neutrophils # (auto) 6.4 10 ^3/uL (1.6-8.6); Nucleated Red Blood Cells % 0.2 %; Red Cell Distribution Width 18.4 % (11.8-14.3); White Blood Cell 8.2 10^3/uL (4.4-10.8)
[2022-04-29 06:46] LABS: BUN/Creatinine Ratio 28.9; Calcium 8.4 mg/dL (8.5-10.1)
[2022-04-29 07:14] LABS: Potassium 3.6 mmol/L (3.5-5.1)
[2022-04-29] MEDS: PANTOPRAZOLE 40 MG/10 ML VIAL INJ IV SCH (09:31)
[2022-04-29] MEDS: cefTRIAXone 1GM/50ML D5W 50 ML IV SCH (09:31)
[2022-04-29] MEDS: POTASSIUM CHL 10 Meq TABLET PO SCH (09:32)
[2022-04-29] MEDS: AZITHROMYCIN 250 MG TAB PO SCH (09:32)
[2022-04-29] MEDS: APIXABAN 5 MG TAB PO SCH ×2 (09:49→21:35)
[2022-04-29] MEDS: ASPirin-EC 81 mg tab PO SCH (09:49)
[2022-04-29] MEDS ORDERED: IPRATROPIUM BROM 0.5 MG/2.5ML INH SOL NEB PRN (10:30)
[2022-04-29] MEDS ORDERED: ONDANSETRON HCL 4 MG/2 ML VIAL IV PRN (10:30)
[2022-04-29] MEDS ORDERED: HYDROcodone-ACET 5/325MG TAB PO PRN (10:30)
[2022-04-29] MEDS ORDERED: MORPHINE SULFATE INJ 2 MG/ml SYRG IV PRN (10:30)
[2022-04-29] MEDS ORDERED: ALBUTEROL SULF 2.5 MG/0.5ML(0.5%) NEB SOLN NEB PRN (10:30)
[2022-04-29] MEDS ORDERED: DOCUSATE SOD 100 MG CAP PO PRN (10:30)
[2022-04-30 05:00] VITALS: BP 104/59
[2022-04-30 05:44] LABS: Basophils # (auto) 0.1 10 ^3/uL (0-0.2); Eosinophils # (auto) 0.2 10 ^3/uL (0-0.8); Hemoglobin 13.1 g/dL (13.5-17.5); Neutrophils # (auto) 5.9 10 ^3/uL (1.6-8.6); Nucleated Red Blood Cells % 0.1 %
[2022-04-30 05:47] LABS: Eosinophils % (auto) 2.8 % (0.0-7.0); Hematocrit 40.8 % (41.0-53.0); Lymphocytes % (auto) 13.2 % (10.0-50.0); Mean Corpuscular Hemoglobin 23.5 pg (28.0-32.0); Mean Corpuscular Hgb Conc. 32.1 g/dL (32.0-36.0); Mean Corpuscular Volume 73.2 fL (80.0-100.0); Monocytes # (auto) 0.6 10 ^3/uL (0-1.3); Red Blood Cells 5.57 10^6/uL (4.5-5.90); Red Cell Distribution Width 18.4 % (11.8-14.3); White Blood Cell 7.8 10^3/uL (4.4-10.8)
[2022-04-30 06:12] LABS: Albumin 2.5 g/dL (3.4-5.0); BUN/Creatinine Ratio 24.7; Bilirubin, Total 0.5 mg/dL (0.2-1.0); Calcium 8.8 mg/dL (8.5-10.1); Potassium 3.9 mmol/L (3.5-5.1); Total Protein 5.9 g/dL (6.4-8.2)
[2022-04-30] MEDS: MIDODRINE HCL 10 MG TAB PO SCH ×2 (06:13→11:59)
[2022-04-30] MEDS: FUROSEMIDE 40 MG/4 ML VIAL IV SCH (06:18)
[2022-04-30] MEDS: AZITHROMYCIN 250 MG TAB PO SCH (09:11)
[2022-04-30] MEDS: ASPirin-EC 81 mg tab PO SCH (09:11)
[2022-04-30] MEDS: PANTOPRAZOLE 40 MG/10 ML VIAL INJ IV SCH (09:11)
[2022-04-30] MEDS: POTASSIUM CHL 10 Meq TABLET PO SCH (09:11)
[2022-04-30] MEDS: APIXABAN 5 MG TAB PO SCH (09:11)
[2022-04-30 09:12] VITALS: BP 128/83
[2022-04-30] MEDS: cefTRIAXone 1GM/50ML D5W 50 ML IV SCH (09:12)
[2022-04-30 13:00] VITALS: BP 122/78
[2022-04-30] MEDS ORDERED: DOXY-332 PO (14:27)
[2022-04-30] MEDS ORDERED: ATOR40TA52 PO (14:27)
[2022-04-30] MEDS ORDERED: APIX5TAB PO (14:27)
[2022-04-30] MEDS ORDERED: FURO1TAB33 PO (14:27)
[2022-04-30] MEDS ORDERED: MID10T PO (14:27)
== END 2022-04-30 17:32 | disposition home or self-care (01) | DRG 193 ==
LOC: ER 11:28 → TELE 18:21 → TELE-EAST 04-23 18:06 → DOU IN ICU 04-25 15:48 → TELE-WESTW 04-29 22:06
PROVIDERS: ADMIT Registered Nurse; ATTEND Nurse Practitioner Acute Care
PROC: 0W9B3ZZ Drainage of Left Pleural Cavity, Percutaneous Approach (ICD-10-PCS; 2022-04-23)
PROC: 02HV33Z Insertion of Infusion Device into Superior Vena Cava, Percutaneous Approach (ICD-10-PCS; principal; 2022-04-25)
DX: J18.9 Pneumonia, unspecified organism (principal); I50.43 Acute on chronic combined systolic (congestive) and diastolic (congestive) heart failure; J96.01 Acute respiratory failure with hypoxia; R57.0 Cardiogenic shock; E44.0 Moderate protein-calorie malnutrition; I13.0 Hypertensive heart and chronic kidney disease with heart failure and stage 1 through stage 4 chronic kidney disease, or unspecified chronic kidney disease; R65.10 Systemic inflammatory response syndrome (SIRS) of non-infectious origin without acute organ dysfunction; J91.8 Pleural effusion in other conditions classified elsewhere; Z20.822 Contact with and (suspected) exposure to COVID-19; E78.5 Hyperlipidemia, unspecified; N18.9 Chronic kidney disease, unspecified; I44.4 Left anterior fascicular block; I25.10 Atherosclerotic heart disease of native coronary artery without angina pectoris; I51.3 Intracardiac thrombosis, not elsewhere classified; Z79.899 Other long term (current) drug therapy; Z79.01 Long term (current) use of anticoagulants; Z86.16 Personal history of COVID-19; Z95.1 Presence of aortocoronary bypass graft; Z91.14 Patient's other noncompliance with medication regimen; Z68.28 Body mass index [BMI] 28.0-28.9, adult
CPT/HCPCS: 36415; 71045; 71275; 76604; 76705; 76942; 80048; 80053; 80061; 80076; 80307; 81001; 82962; 82977; 83036; 83615; 83735; 83880; 83986; 84443; 84484; 85025; 85379; 85610; 85730; 86704; 86706; 86708; 86803; 87040; 87070; 87081; 87205; 87340; 87426; 89051; 93005; 93306; 93925; 94640; 96365; 96375; 97110; 97116; 97163; 97530; C9113; G0378; J0696; J2405